=== PATIENT | female | born 1965 | race Caucasian/White ===

== ENCOUNTER 2017-06-03 11:42 | Emergency (ER) | payer OTHER ==
[~2017-06-03] VITALS: Ht 177.8 cm; Wt 74.8 kg
[~2017-06-03 11:42] MED LIST: ALPR2TAB2 PO
--- NOTE | 2017-06-03 11:45 | NUR ---
PT BIBRA FROM HOME TO ER BED 14. PER REPORT PT WAS DIFFICULT TO AROUSE THIS AM. POSSIBLE OD TO XANAX. PT IA AWAKE ARMORED VEHICLE OFFICER. APPEARS LETHARGIC. PLACED ON MONITOR. STABLE VITALS. PT IS AAOX2. AWAITING MD RENDON.
--- NOTE | 2017-06-03 11:51 | NUR ---
DR COURTNEY AT BEDSIDE FOR EVAL.
[2017-06-03 12:20] LABS: BASOPHILS # (AUTO) 0.1 /CMM (0.0-0.2); BASOPHILS % (AUTO) 1.1 % (0.0-2.0); EOSINOPHILS # (AUTO) 0.1 /CMM (0.0-0.7); EOSINOPHILS % (AUTO) 1.2 % (0.0-6.0); HEMATOCRIT 43 % (33-45); HEMOGLOBIN 14.4 g/dL (11.5-14.8); LYMPHOCYTES # (AUTO) 1.6 /CMM (0.8-4.8); MEAN CORPUSCULAR HEMOGLOBIN 28 PG (26.0-33.0); MEAN CORPUSCULAR HGB CONC 33 g/dl (31.0-36.0); MEAN CORPUSCULAR VOLUME 85 fL (82-100); MONOCYTES # (AUTO) 0.4 /CMM (0.1-1.30); MONOCYTES % (AUTO) 5.2 % (2.0-12.0); NEUTROPHILS # (AUTO) 6.4 /CMM (1.8-8.9); NEUTROPHILS % (AUTO) 73.5 % (43.0-81.0); PLATELET COUNT (AUTO) 317 /CMM (150-450); RDW COEFFICIENT OF VARIATION 14.3 (11.5-15.0); RED BLOOD CELL COUNT(AUTO) 5.09 MIL/uL (4.0-5.2); WHITE BLOOD COUNT (AUTO) 8.6 K/uL (4.3-11.0)
[2017-06-03 12:24] LABS: APPEARANCE,URINE Clear (CLEAR); BILIRUBIN,URINE Negative (NEGATIVE); BLOOD, URINE Negative Ery/uL (NEGATIVE); COLOR,URINE Yellow (YELLOW); KETONES,URINE Negative (NEGATIVE); LEUKOCYTE ESTERASE ,URINE Negative (NEGATIVE); NITRITE, URINE Negative (NEGATIVE); PH,URINE 7.5 (5.0-8.0); PROTEIN,URINE Negative (NEGATIVE); UGLUCOSE Negative (NEGATIVE); UROBILINOGEN,URINE 0.2 EU/dL (0.2)
[2017-06-03 12:29] LABS: CARBON DIOXIDE 27 mmol/L (21-32); CHLORIDE 101 mmol/L (98-107); CREATININE 0.8 mg/dL (0.6-1.3); GLUCOSE 109 mg/dL (74-106); POTASSIUM 4.2 mmol/L (3.5-5.1); SODIUM SERUM 137 mmol/L (136-145); UREA NITROGEN, BLOOD 8 mg/dL (7-18)
[2017-06-03 12:30] LABS: ALCOHOL, BLOOD < 3 mg/dL (0-0)
--- NOTE | 2017-06-03 13:41 | NUR ---
Note raffizenia in EDM - 06/03/17 at 1519 by CAMDEN PT BIBRA FROM HOME TO ER BED 14. PER REPORT PT WAS DIFFICULT TO AROUSE THIS AM. POSSIBLE OD TO XANAX. PT IA AWAKE SECTION LEADER. APPEARS LETHARGIC. PLACED ON MONITOR. STABLE VITALS. PT IS AAOX2. AWAITING MD RENDON.
--- NOTE | 2017-06-03 15:40 | NUR ---
ART RECRUITING CONSULTANT AT BEDSIDE FOR EVAL.
--- NOTE | 2017-06-03 16:55 | NUR ---
Patient discharged to home in stable condition. Written and verbal after care instructions given. Patient verbalizes understanding of instruction.IV removed. Catheter intact and site benign. Pressure and 4x4 applied to site. No bleeding noted.
[2017-06-03 16:56] VITALS: BP 124/82
== END 2017-06-03 16:57 | disposition home or self-care (01) ==
LOC: ER 11:45
DX: F23 Brief psychotic disorder (principal); R51 Headache; F41.9 Anxiety disorder, unspecified
CPT/HCPCS: 36415; 70450-TC; 80048-TC; 80305; 81000-TC; 84703-TC; 85025-TC; A4606; G0480; Z7610

== ENCOUNTER 2017-06-05 06:18 | Emergency (ER) | payer OTHER ==
[~2017-06-05] VITALS: Ht 165.1 cm; Wt 59.0 kg
[2017-06-05 06:20] VITALS: BP 131/91
== END 2017-06-05 07:04 | disposition home or self-care (01) ==
LOC: ER 06:20
DX: F41.9 Anxiety disorder, unspecified (principal); M54.9 Dorsalgia, unspecified; F17.200 Nicotine dependence, unspecified, uncomplicated; F32.9 Major depressive disorder, single episode, unspecified; F43.10 Post-traumatic stress disorder, unspecified; F90.9 Attention-deficit hyperactivity disorder, unspecified type
CPT/HCPCS: 99281; 99406; A4606; Z7610; Z7502